=== PATIENT | female | born 1965 | race Caucasian/White ===

== ENCOUNTER → 2022-06-30 08:18 | Outpatient (CLI) | payer BC, SELFPAY ==
--- NOTE | ~2022-06-30 | MMUS_ITS ---
EXAMINATION: MM diagnostic mammo implant LT, US axilla LT HISTORY: Palpable lumps of the left axilla in a patient with history of silicone implant rupture and replacement TECHNIQUE: Craniocaudal, mediolateral oblique, and mediolateral views of the left breast without impl ant displacement were obtained using full field digital mammography. CAD analysis was submitted and i nterpreted. High resolution limited left axillary ultrasound was performed. COMPARISON: 11/13/2021, 11/16/2018 BREAST PARENCHYMAL COMPOSITION: The breasts are heterogeneously dense, which may obscure small masses . FINDINGS: MAMMOGRAPHIC FINDINGS: Given the recent negative screening mammogram and location of the palpable abnormality of the left ax illa, views of the left breast were obtained without implant displacement. No suspicious mass, calcif ication, or architectural distortion are identified. No mammographic correlate is identified for the reported palpable abnormality of the left axilla ULTRASOUND: There are adjacent ill-defined mildly hyperechoic areas with dense posterior acoustic shadowing in th e left axilla in the area of palpable abnormality. IMPRESSION: 1. Probable extravasated silicone in the left axilla in the area of palpable concern. 2. Recommend routine screening mammography in one year and continued clinical follow-up. BI-RADS Category 2: Benign finding(s). Reviewed, dictated and finalized at location A. IMPRESSION: 1. Probable extravasated silicone in the left axilla in the area of palpable co ncern. 2. Recommend routine screening mammography in one year and continued clinical f ollow-up. BI-RADS Category 2: Benign finding(s).
== END ==
PROVIDERS: PCP Family Medicine; Visit Provider Family Medicine
DX: E04.9 Nontoxic goiter, unspecified (principal); N63.21 Unspecified lump in the left breast, upper outer quadrant
CPT/HCPCS: 76882; 77065

== ENCOUNTER → 2022-08-26 12:04 | Outpatient (CLI) | payer BC, SELFPAY ==
--- NOTE | ~2022-08-26 | XR_ITS ---
EXAMINATION: XR hip RT min 3V w AP pelvis INDICATION: Right hip pain TECHNIQUE: AP view the pelvis and two views of the right hip are obtained. COMPARISON: None available FINDINGS: Bone alignment is normal. There is no fracture. There is mild osteoarthritis of the hips. P hleboliths are noted in the pelvis. There is moderate lumbar spondylosis. IMPRESSION: 1. Mild osteoarthritis of the hips. Reviewed, dictated and finalized at location F. ER HAND
== END ==
PROVIDERS: PCP Family Medicine; Visit Provider Family Medicine
DX: M16.11 Unilateral primary osteoarthritis, right hip (principal)
CPT/HCPCS: 73502

== ENCOUNTER → 2023-06-17 07:52 | Outpatient (CLI) | payer BC, SELFPAY ==
--- NOTE | ~2023-06-17 | US_ITS ---
EXAMINATION: US thyroid DATE: 06/17/2023 08:08 INDICATION: Other specified symptoms and signs. Neck fullness. TECHNIQUE: Multiple ultrasound images of the thyroid were obtained. COMPARISON: None. FINDINGS: The right thyroid lobe measures 5.5 x 1.6 x 1.7 cm. The left thyroid lobe measures 4.8 x 1.4 x 1.3 c m. There is normal echotexture and echogenicity throughout the thyroid gland. No discrete nodules id entified. Normal vascular flow is present. IMPRESSION: 1. Normal thyroid. Reviewed, dictated and finalized at location A. IMPRESSION: 1. Normal thyroid.
== END ==
PROVIDERS: PCP Physician Assistant; Visit Provider Physician Assistant
DX: R09.89 Other specified symptoms and signs involving the circulatory and respiratory systems (principal)
CPT/HCPCS: 76536

== ENCOUNTER 2024-12-05 09:44 | Outpatient (CLI) | payer BC, SELFPAY ==
--- NOTE | ~2024-12-05 | MM_ITS ---
EXAMINATION: MM diag destiny implant RT w noemy HISTORY: Follow-up breast calcifications TECHNIQUE: Additional 3-D tomosynthesis images of the right breast were performed and synthetic 2-D i mages were generated. CAD analysis was submitted and interpreted. COMPARISON: Comparison to multiple prior studies sequentially, with oldest reviewed study dated 11/16. BREAST PARENCHYMAL COMPOSITION: Dense: The breasts are heterogeneously dense, which may obscure small masses FINDINGS: There are multiple punctate relatively monomorphic calcifications is in the lower central r ight breast which are most likely benign. There are no suspicious masses or architectural distortion. IMPRESSION: 1. Probable benign right breast calcifications. 2. Recommend 6 month follow-up diagnostic right mammogram BI-RADS category 3, probably benign findings. Reviewed, dictated and finalized at location A.
== END 2024-12-05 09:45 | disposition home or self-care (01) ==
PROVIDERS: PCP Family Medicine; Visit Provider Family Medicine
DX: R92.8 Other abnormal and inconclusive findings on diagnostic imaging of breast (principal)
CPT/HCPCS: 77061; 77065; G0279

== ENCOUNTER 2025-02-22 11:26 | Outpatient (CLI) | payer BC, SELFPAY ==
--- OUTSIDE RECORDS SUMMARY | 2025-02-22 12:16 | XMS_ITS | Clinical Summary ---
Author Organization [facility] Address [address] [place] [address] Care Team Providers Care Welfare Specialist Name Role Phone Ml Quijano MD Primary Care Provider + Allergies No known active allergies Medications multivit with min-folic acid (Adult One Daily Multivitamin) 0.4 mg tablet Take 1 tablet by mouth 3 (three) times a day with meals Active omega-3 fatty acids-fish oil 300-1,000 mg capsule Take 1 capsule by mouth daily Active estradioL (VAGIFEM) 10 mcg tablet INSERT ONE TABLET IN THE VAGINA 2 TIMES A WEEK 06/03/2021 Active ibuprofen (ibuprofen) 200 mg tab/cap Take 400 mg by mouth every 6 (six) hours as needed Active progesterone (PROMETRIUM) 100 mg capsule TAKE 1 TO 2 CAPSULES BY MOUTH AT BEDTIME 04/24/2021 Active Ozempic 0.25 mg or 0.5 mg(2 mg/1.5 mL) pen injector injection INJECT 0.5 MG UNDER THE SKIN WEEKLY 03/27/2021 Active Active Problems Problem Noted Date Diagnosed Date Screening for colorectal cancer 06/08/2018 Knee pain 11/20/2011 Immunizations Immunization Administration Dates Next Due Influenza, Quadrivalent, Spl it, Preservative Free, Intramuscular 05/28/2021,06/28/2020 ZOSTER Recombinant 08/29/2020,06/28/2020 Surgical History Surgery Date Site/Laterality Comments KNEE ARTHROSCOPY 09/06/2000 - 09/05/2001 Left ACLR KNEE ARTHROSCOPY ~2007 Left Meniscus repair Social History Tobacco Use Types Packs/Day Years Used Date Smoking Tobacco: Former Cigarettes Q uit: 2004 Smokeless Tobacco: Never AUDIT-C Answer Date Recorded Q1: How often do you have a drink containing alc ohol? 2-4 times a month 06/11/2021 Q2: How many drinks containi ng alcohol do you have on a typical day when you are drinking? 1 or 2 06/11/2021 Q3: How often do you have si x or more drinks on one occasion? 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 Gender Identity Not on file Sexual Orientation Not on file Obstetrics History Last Filed Vital Signs Vital Sign Reading Time Taken Comments Blood Pressure - - Pulse - - Temperature - - Respiratory Rate - - Oxygen Saturation - - Inhaled Oxygen Concentration - - Weight 66.7 kg (147 lb) 06/11/2021 4:11 PM CDT Height 157.5 cm (5' 2) 06/11/2021 4:11 PM CDT Body Mass Index 26.89 06/11/2021 4:11 PM CDT Plan of Treatment Not on file Insurance Treedom Treedom Member Subscriber Plan / Payer (Ef fective 2021-Present) Name:Nancy Griffin Relation to Subscriber:Self Name:Nancy Griffin Sue Payer ID:[id number] (NAIC) Type:BC ALLIANCE Address: [facility] [id number] [place] [address] Care Teams Welfare Specialist Relationship Specialty Start Date End Date Ml Quijano MD PCP - General Family Medicine 05/14/21
--- OUTSIDE RECORDS SUMMARY | 2025-02-22 12:16 | XMS_ITS | Referral Summary ---
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
--- OUTSIDE RECORDS SUMMARY | 2025-02-22 12:16 | XMS_ITS | Clinical Summary ---
Author Organization [facility] Address [address] [place] [address] [place] [address] Care Team Providers Care It Senior Software Engineer Java Name Role Phone Ml Quijano MD Primary Care Provider [phone] Source Comments [facility],non-owned Affiliates and Associated Physician Practices is amultiple site organization consisting of ambulatory clinics and hospital sitesin [place], [place], [place] and [place]. This disclosure is being madepursuant to the Care Everywhere program and may not contain all information available regarding this patient. Last updated 18.[facility] Allergies No known active allergies Medications * Be aware that medications may not be up to date on this document. Alwaysverify current medications with the patient. Ackerly-3 Fatty Acids (FISH OIL PO) Take 1 capsule by mouth once daily Active multivitamin daily tablet Take 1 tablet by mouth daily with food Active ibuprofen (MOTRIN) 200 MG tablet Take 400 mg by mouth every 6 hours as needed for Pain Active Active Problems Problem Noted Date Diagnosed Date Screening for colorectal cancer 06/08/2018 Encounters Date Type Department Care Team Description 12/28/2024 12:53 PM CDT - 12/28/2024 11:59 PM CDT Hospital Encounter [facility] - Outside Imaging Discharge Disposition: Home or Self Care from Last 3 Months Social History Tobacco Use Types Packs/Day Years Used Date Smoking Tobacco: Former Smokeless Tobacco: Never Alcohol Use Standard Drinks/Week Comments Yes 0 (1 standard drink = 0.6 oz pur e alcohol) very rarely Comments No Sex and Gender Information Value Date Recorded Sex Assigned at Female 08/29/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 Legal Sex Female 1:53 PM CDT Gender Identity Female 08/29/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 Sexual Orientation Straight 08/29/2023 10 :12 AM PROFESSOR OF PUBLIC ADMINISTRATION Last Filed Vital Signs Vital Sign Reading Time Taken Comments Blood Pressure 111/80 07/05/2018 8:59 AM CDT Pulse 55 07/05/2018 8:59 AM CDT Temperature 36.6 C (97.9 F) 07/05/2018 8:40 AM CDT Respiratory Rate 16 07/05/2018 8:59 AM CDT Oxygen Saturation 100% 07/05/2018 8:59 AM CDT Inhaled Oxygen Concentration - - Weight 62.1 kg (137 lb) 11/14/2024 8:16 AM CDT Height 157.5 cm (5' 2) 11/14/2024 8:16 AM CDT Body Mass Index 25.06 11/14/2024 8:16 AM CDT Plan of Treatment Health Maintenance Due Date Last Done Comments COLOGUARD (AGES 45-75) - COL ON CA SCREENING 1965 CT COLONOGRAPHY - COLON CA SCREENING 1965 FIT - COLON CA SCREENING 1965 FLEX SIG - COLON CA SCREENING 1967 HIV SCREENING 1982 HEPATITIS C SCREENING 01/10/1985 DTAP/TDAP/TD VACCINES (1 - Tdap) 1986 HEPATITIS B VACCINE (1 of 3 - 19+ 3-dose series) 1986 PAP SMEAR 01/16/1988 PNEUMOCOCCAL VACCINE 50+ (1 of 1 - PCV) 2017 ZOSTER VACCINE (1 of 2) 2017 COVID-19 VACCINE ( - 2023-2 5 season) 2024 DEPRESSION SCREENING 09/06/2024 INFLUENZA VACCINE (Season Ended) 2025 05/28/2021, 06/28/2020, 09/30/2016 MAMMOGRAM 11/14/2026 11/14/2024, 03/04/2018 COLON MONITORING 07/05/2028 07/05/2018, 07/05/2018 COLONOSCOPY - COLON CA SCREENING 07/05/2028 07/05/2018, 07/05/2018 Colorectal Cancer Screening 07/05/2028 LIPID TESTING 10/12/2029 10/12/2024 HIB VACCINE Aged Out No longer eligi ble based on patient's age to complete this topic HPV VACCINE Aged Out No longer eligi ble based on patient's age to complete this topic MENINGOCOCCAL (Group B) VACCINE SHARED DECISION-MAKING Aged Out No longer eligible based on patient's age to complete this topic MENINGOCOCCAL GROUPS A/C/Y/W VACCINE Aged Out No longer eligible b ased on patient's age to complete this topic Procedures Procedure Name Priority Date/Time Associated Diagnosis Comments MM OUTSIDE MAMMOGRAM RIGHT Routine 12/05/2024 2:38 PM CDT MAMMO BILAT IMPLANT SCREEN W JUAN Routine 11/14/2024 8:16 AM CDT Visit for screening mammogram ENDOSCOPY, COLON, SCREENING Routine 07/05/2018 8:02 AM CDT Screening for colorectal cancer from Last 3 Months or Most Recently Relevant to Health Maintenance Results * MM Outside Mammogram Right (12/05/2024 2:38 PM CDT) Narrative [facility] - 12/28/2024 2:39 PM CDT This is a study from an outside facility that has been uploaded into PACS. us Provider [facility] Final Result [facility] * Mammo Bilat Implant Screen W Juan (11/14/2024 8:16 AM CDT) Anatomical Region Laterality Modality Breast Bilateral Mammography 11/24/2024 10:0 8 AM CDT Impressions 11/24/2024 10:45 AM CDT IMPRESSION: 1. Calcifications are questioned in the lower central right breast. Additional imaging is recommended. 2. Negative, no mammographic evidence of malignancy in the left breast. RECOMMENDATION: Diagnostic right mammogram. If indicated at that time, right breast ultrasound will be performed. Patient will be contacted and scheduled to return for the additional imaging. OVERALL ASSESSMENT: BI-RADS CATEGORY 0: INCOMPLETE: NEED ADDITIONAL IMAGING EVALUATION. > Interpreting Provider: Melanie Bush MD on 11/24/2024 10:45 AM Narrative 11/24/2024 10:45 AM CDT EXAMINATIONS: BILATERAL DIGITAL SCREENING MAMMOGRAM WITH IMPLANTS AND BILATERAL BREAST TOMOSYNTHESIS LOCATION: [facility] EXAM DATE: 11/14/2024 HISTORY: Screening. History of breast augmentation. Patient reports history of left implant rupture in 2018. RISK ASSESSMENT CALCULATION: Patient completed a breast cancer risk assessment during her appointment 11/14/2024. Based upon the information she provided and her mammographic breast density, her lifetime risk of developing breast cancer is 10 % (Average Risk <15%; Intermediate / Moderate Risk 15-19; High Risk > 20%). Risk assessment based upon the BRCAPRO model. COMPARISON: Compare with outside mammogram from [facility] dated 06/30/2022. Please note, additional prior outside imaging is not available at the time of this dictation. TECHNIQUE: Bilateral synthetic 2-D digital mammogram images and bilateral digital breast tomosynthesis (3D) were obtained and reviewed in the craniocaudal and mediolateral oblique projections with the breast implants displaced. Bilateral craniocaudal and mediolateral oblique conventional full field digital images were also obtained to include the bilateral breast implants. . A total of 9 images obtained. Transpara AI was utilized in the interpretation. BREAST PARENCHYMAL COMPOSITION: Category C: The breasts are heterogeneously dense which may obscure small masses. FINDINGS: Right breast: Calcifications are questioned in the lower central breast. There are subpectoral silicone breast implants, which limit evaluation of the breast parenchyma. Left breast: There are subpectoral silicone breast implants, which limit evaluation of the breast parenchyma. There are no suspicious findings or evidence of malignancy on mammography. No change from prior. us Ml Quijano MD MAMMO ORDERABLES Final Re sult * ENDOSCOPY, COLON, SCREENING (07/05/2018 8:02 AM CDT) Report Endoscopy POC _ Patient Name: Nancy Holder Procedure Date: 07/05/2018 8:02 AM Date of : 1965 Admit Type: Outpatient Age: 53 Gender: Female Attending MD: Milind Downing MD _ Procedure: Colonoscopy Indications: Screening for colorectal malignant neoplasm, This is the patient's first colonoscopy Providers: Milind Downing MD (Doctor) Medicines: Monitored Anesthesia Care Complications: No immediate complications. Estimated blood loss: None. _ Procedure: Pre-Anesthesia Assessment: - Prior to the procedure, a History and Physical was performed, and patient medications and allergies were reviewed. The patient is competent. The risks and benefits of the procedure and the sedation options and risks were discussed with the patient. All questions were answered and informed consent was obtained. Patient identification and proposed procedure were verified by the physician, the nurse and the catalyst manufacturing operator in the procedure room. Mental Status Examination: alert and oriented. Airway Examination: normal oropharyngeal airway and neck mobility. Respiratory Examination: clear to auscultation. CV Examination: normal. Prophylactic Antibiotics: The patient does not require prophylactic antibiotics. Prior Anticoagulants: The patient has taken no previous anticoagulant or antiplatelet agents. ASA Grade Assessment: I - A normal, healthy patient. After reviewing the risks and benefits, the patient was deemed in satisfactory condition to undergo the procedure. The anesthesia plan was to use monitored anesthesia care (MAC). Immediately prior to administration of medications, the patient was re-assessed for adequacy to receive sedatives. The heart rate, respiratory rate, oxygen saturations, blood pressure, adequacy of pulmonary ventilation, and response to care were monitored throughout the procedure. The physical status of the patient was re-assessed after the procedure. After I obtained informed consent, the scope was passed under direct vision. Throughout the procedure, the patient's blood pressure, pulse, and oxygen saturations were monitored continuously. The Colonoscope was introduced through the anus and advanced to the cecum, identified by appendiceal orifice and ileocecal valve. The colonoscopy was performed without difficulty. The patient tolerated the procedure well. The quality of the bowel preparation was excellent. Findings: The digital rectal exam was normal. Pertinent negatives include no palpable rectal lesions. Multiple small and large-mouthed diverticula were found in the sigmoid colon and in the descending colon. The rectum, transverse colon, ascending colon, cecum, appendiceal orifice and ileocecal valve appeared normal. _ Impression: - Diverticulosis in the sigmoid colon and in the descending colon. - The rectum, transverse colon, ascending colon, cecum, appendiceal orifice and ileocecal valve are normal. - No specimens collected. Recommendation: - Repeat colonoscopy in 10 years for surveillance. - Return to primary care physician as previously scheduled. - High fiber diet indefinitely. Procedure Code(s): --- Professional --- 50254, Colonoscopy, flexible; diagnostic, including collection of specimen(s) by brushing or washing, when performed (separate procedure) --- Technical --- 91160, Colonoscopy, flexible; diagnostic, including collection of specimen(s) by brushing or washing, when performed (separate procedure) Diagnosis Code(s): --- Professional --- Z12.11, Encounter for screening for malignant neoplasm of colon K57.30, Diverticulosis of large intestine without perforation or abscess without bleeding --- Technical --- Z12.11, Encounter for screening for malignant neoplasm of colon K57.30, Diverticulosis of large intestine without perforation or abscess without bleeding CPT copyright 2015 [employer]. All rights reserved. The codes documented in this report are preliminary and upon call specialist review may be revised to meet current compliance requirements. Dr. Milind Downing MD Milind Downing MD 07/05/2018 8:39:59 AM This report has been signed electronically. Number of Addenda: 0 Note Initiated On: 07/05/2018 8:02 AM DP ENDOSCOPY 07/05/2018 8:02 AM CDT us Milind Downing MD GI PROCEDURE ORDERABLES Raul juan david Result - Final DP ENDOSCOPY [place] [id number] from Last 3 Months or Most Recently Relevant to Health Maintenance Insurance ANTH Care Teams It Senior Software Engineer Java Relationship Specialty Start Date End Date Ml Quijano MD [address] [place] [address] PCP - General Family Medicine 12/20/20
[2025-02-22 21:02] LABS: Influenza A QL RT-PCR Negative (Negative); Influenza B QL RT-PCR Negative (Negative); RSV RNA, RT-PCR Negative (Negative); SARS-CoV-2 RNA PCR Negative (Negative)
== END 2025-02-22 11:27 | disposition home or self-care (01) ==
LOC: ANHGOSHLAB 11:26
PROVIDERS: PCP Family Medicine; Visit Provider Family Medicine
DX: B34.9 Viral infection, unspecified (principal); Z20.822 Contact with and (suspected) exposure to COVID-19
CPT/HCPCS: 87637